=== PATIENT | female | born 1955 | race Caucasian/White ===

== ENCOUNTER 2022-11-14 15:02 | Outpatient (CLI) | payer MEDICARE, SELFPAY ==
--- NOTE | ~2022-11-14 | DEXA_ITS ---
Bone Density Report Name: MELISSA YAN Age: 67 Sex: Female Ethnicity: White Date of : 1955 Indication: postmenopausal; screening for osteoporosis; height loss; hysterectomy; Referring Provider: ANNAMARIA SAMANIEGO NP Study: Bone densitometry was performed. Exam Date: November 14, 2022 Accession number: [id number] Bone Density: Region BMD T-score Z-score Classification AP Spine(L1-L4) 0.984 -0.6 1.4 Normal Femoral Neck (Left) 0.881 0.3 2.0 Normal Total Hip (Left) 0.960 0.1 1.6 Normal Femoral Neck (Right) 0.891 0.4 2.1 Normal Total Hip (Right) 0.964 0.2 1.6 Normal Total Hip Mean 0.962 0.2 1.6 Normal World Health Organization criteria for BMD impression classify patients as: Normal (T-score at or above -1.0), Osteopenia (T-score between -1.0 and -2.5), or Osteoporosis (T-score at or below -2.5). 10-year Fracture Risk: FRAX not reported because: All T-scores for Spine Total, Hip Total, Femoral Neck at or above -1.0 Clinical Information Provided by Patient: Has the following medical conditions: Hysterectomy Patient maximum height was 64 Menopause Age: 49 Drinks caffeinated beverages Onset of menses at age 12 Number of children 3 Impression: The patient has normal bone mass. Discussion: BONE DENSITY IS ABOVE THE MINIMUM DESIRABLE LEVEL AT ALL SKELETAL SITES TESTED. This patient?s bone mineral density is above the minimum desirable level (T-score -1.0 or better) at all sites measured. The patient should follow a healthful lifestyle (good nutrition with adequate calcium and vitamin D, and appropriate weight-bearing exercise). Follow-Up: Consider repeating this study in 5 years or sooner if there is some new clinical indication. Reported by: GREY on 11/14/2022 3:15:00 PM. Reviewed, dictated and finalized at location [facility]
== END 2022-11-14 15:03 | disposition home or self-care (01) ==
LOC: ANHIMG 15:05
PROVIDERS: Visit Provider Nurse Practitioner Family
DX: Z13.820 Encounter for screening for osteoporosis (principal); Z78.0 Asymptomatic menopausal state
CPT/HCPCS: 77080

== ENCOUNTER → 2023-03-05 09:28 | Outpatient (CLI) | payer MEDICARE, SELFPAY ==
--- NOTE | ~2023-03-05 | MR_ITS ---
MRI of the left knee Clinical history: Pain Technique: Coronal proton density and proton density-weighted images, sagittal proton-density and T2 fat-sat images, and axial proton-density fat-saturated images were acquired. Findings: ACL is hyperintense, and somewhat poorly delineated, but with fibers appearing to maintain normal orientation. Appearance suggests severe mucoid degenerative change of the ACL rather than rupt ure. Posterior cruciate ligament is intact. Medial collateral ligament and the lateral collateral lig ament complex are intact. Popliteus tendon is intact. There is complex tearing of the posterior horn and body of the medial meniscus, including probable la rge radial tear near the posterior root. No lateral meniscal tear identified. There is diffuse high-grade chondromalacia of the medial compartment. There is patchy mild chondromal acia of the lateral compartment. There is patchy moderate chondromalacia the femoral trochlea with fo richi high-grade chondromalacia along the medial patellar facet. Tricompartmental osteophytes are prese nt, largest at the medial joint line. Extensor mechanism is intact. There is minimal joint effusion and minimal Wallace's cyst. Impression: Complex tearing of the posterior horn and body of medial meniscus, as detailed above. 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 Mild to modera te degenerative change of the lateral and patellofemoral compartments, as detailed above. Reviewed, dictated and finalized at [facility]. Impression: Complex tearing of the posterior horn and body of medial meniscus, as detailed above. 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 Mild to moderate degenerative change of the lateral and patellofemoral compartments, as detailed above.
== END ==
PROVIDERS: PCP Family Medicine; Visit Provider Family Medicine
DX: S83.412D Sprain of medial collateral ligament of left knee, subsequent encounter (principal); M23.222 Derangement of posterior horn of medial meniscus due to old tear or injury, left knee; M94.262 Chondromalacia, left knee
CPT/HCPCS: 73721

== ENCOUNTER 2025-05-03 09:34 | Outpatient (CLI) | payer MEDICARE, SELFPAY ==
--- NOTE | ~2025-05-03 | DEXA_ITS ---
Bone Density Report Name: MELISSA YAN Age: 69 Sex: Female Ethnicity: White Date of : 1955 Indication: postmenopausal; screening for osteoporosis; height loss; hysterectomy; Referring Provider: DANETTE, ANNAMARIA Ambrocio Study: Bone densitometry was performed. Exam Date: May 03, 2025 Accession number: [id number] Bone Density: Region BMD T-score Z-score Classification AP Spine(L1-L4) 1.043 0.0 2.1 Normal Femoral Neck (Left) 0.864 0.1 2.0 Normal Total Hip (Left) 0.999 0.5 2.0 Normal Femoral Neck (Right) 0.861 0.1 2.0 Normal Total Hip (Right) 0.971 0.2 1.8 Normal Total Hip Mean 0.985 0.4 1.9 Normal World Health Organization criteria for BMD impression classify patients as: Normal (T-score at or above -1.0), Osteopenia (T-score between -1.0 and -2.5), or Osteoporosis (T-score at or below -2.5). 10-year Fracture Risk: FRAX not reported because: All T-scores for Spine Total, Hip Total, Femoral Neck at or above -1.0 Previous Exams: Region Exam Age BMD T-score BMD Change BMD Change Date g/cm2 vs Baseline vs Previous AP Spine (L1-L4) 05/03/2025 69 1.043 0.0 0.059 (6.0%)* 0.059 (6.0%)* 11/14/2022 67 0.984 -0.6 Total Hip(Left) 05/03/2025 69 0.999 0.5 0.039 (4.1%)* 0.039 (4.1%)* 11/14/2022 67 0.960 0.1 Total Hip(Right) 05/03/2025 69 0.971 0.2 0.006 (0.6%) 0.006 (0.6%) 11/14/2022 67 0.964 0.2 *Denotes significance at 95% confidence level, LSC for AP Spine = 0.022 g/cm2, LSC for Total Hip = 0.027 g/cm2 Clinical Information Provided by Patient: Has used the following medications: Vitamin D Has the following medical conditions: Hysterectomy Patient maximum height was 64 Menopause Age: 49 No regular weight bearing exercise Drinks caffeinated beverages Onset of menses at age 13 Number of children 3 Impression: The patient has normal bone mass. No significant bone loss was observed. Discussion: LOW RISK OF FRACTURE; BONE DENSITY IS WELL ABOVE THE MINIMUM DESIRABLE LEVEL AND ABOVE AVERAGE FOR AGE AND SEX AT ALL SKELETAL SITES TESTED. This person's bone density is above expected limits for age and sex. This is rarely clinically significant, but should be pursued if there are significant musculoskeletal complaints. The patient should follow a healthful lifestyle (good nutrition with adequate calcium and vitamin D, and appropriate weight-bearing exercise). Follow-Up: Consider repeating this study in 5 years or sooner if there is some new clinical indication. Reported by: SRAVANTHI on 05/03/2025 10:18:00 AM. Reviewed, dictated and finalized at location A.
--- OUTSIDE RECORDS SUMMARY | 2025-05-03 10:26 | XMS_ITS | Encounter Summary ---
Author Organization [facility] Healthcare Address [address] [place] [address] Care Team Providers Care Glass Beveller Name Role Phone Cinthia Lindsay NP Primary Care Provider [phone] Kindra Gilliland MD Unavailable [phone] Adis Byrne MD Unavailable [phone] Chele Sawyer MD Unavailable [phone] Encounter Details Date Type Department Care Team (Latest Contact Info) Description 04/12/2025 Results Follow-Up [facility] [place] [address] [place] [address] Cinthia Lindsay NP [address] [place] [address] [address] [place] [address] CBC with auto differential, Comprehensive metabolic panel, Lipid panel, Additional followed-up results: 6 Social History Tobacco Use Types Packs/Day Years Used Date Smoking Tobacco: Never Passive Smoke Exposure: Never Smokeless Tobacco: Never Alcohol Use Standard Drinks/Week Comments Yes 2 (1 standard drink = 0.6 oz pur e alcohol) AUDIT-C Answer Date Recorded Q1: How often do you have a drink containing alcohol? Never 02/27/2023 Q2: How many drinks containi ng alcohol do you have on a typical day when you are drinking? Patient does not drink Q3: How often do you have si x or more drinks on one occasion? Never 02/27/2023 PHQ-2 Answer Date Recorded PHQ-2 Total Score (If total score is 3 or more points, staff should administer the PHQ-9) 0 04/12/2025 Personal Safety Answer Date Recorded Have you ever been in or are you currently in a harmful physical or emotional relationship or is someone making you feel afraid or unsafe? Denies 02/10/2024 Comments No Sex and Gender Information Value Date Recorded Sex Assigned at Not on file Legal Sex Female 3:17 AM ART INSTRUCTOR Gender Identity Not on file Sexual Orientation Straight 05/12/2020 3: 42 PM ART INSTRUCTOR documented as of this encounter Functional Status * In the past year, patient experienced: Question Answer Date of Assessment Author One or more falls in the las t year 0 04/12/2025 11:00 AM ART INSTRUCTOR Capo Cortés MA * BP Location Answer Date of Assessment Author Left arm 04/12/2025 11:02 AM ART INSTRUCTOR Gilda Cortés MA * BP Location Answer Date of Assessment Author Left arm 04/12/2025 11:02 AM ART INSTRUCTOR Gilda Cortés MA documented as of this encounter Plan of Treatment Not on file documented as of this encounter Visit Diagnoses Not on filedocumented in this encounter Care Teams Glass Beveller Relationship Specialty Start Date End Date Cinthia Lindsay NP [address] [facility] [address] [place] [address] PCP - General Family Medicine 09/24/22 Kindra Gilliland MD [address] [facility] [address] [place] [address] Consulting Physician Obstetrics and Gynecology 09/24/22 Adis Byrne MD [address] [facility] [address] [place] [address] Referring Physician Dermatology 09/24/22 [place] [id number] [facility] [address] [place] [address] Referring Physician Orthopedic Surgery 10/23/23 documented as of this encounter
--- OUTSIDE RECORDS SUMMARY | 2025-05-03 10:26 | XMS_ITS | Clinical Summary ---
Author Organization [facility] Address [address] [place] [address] Care Team Providers Care Charge Lpn Name Role Phone Cinthia Lindsay NP Primary Care Provider [phone] Kindra Gilliland MD Unavailable [phone] Adis Byrne MD Unavailable [phone] Chele Sawyer MD Unavailable Allergies No known active allergies Medications celecoxib (CeleBREX) 200 mg capsule Take 1 capsule (200 mg total) by mouth 2 (two) times a day 4 Active lifitegrast (Xiidra) 5 % dropperette Active betamethasone dipropionate (DIPROSONE) 0.05 % ointment Apply topically 2 (two) times a day as needed for irritation or rash 45 g 5 Active Additional Information Patient not taking.Reported on 04/12/2025 tetrahydrozoline HCl/zinc sulf (EYE DROPS RELIEF OPHT) Active rosuvastatin (CRESTOR) 10 mg tablet Take 1 tablet (10 mg total) by mouth daily 90 tablet 1 5 Active Active Problems Problem Noted Date Diagnosed Date Presence of left artificial knee joint 5 Unspecified malignant neoplasm of skin, unspecif ied 06/20/2024 Preoperative examination 06/10/2024 Moderate mixed hyperlipidemia not requiring stat in therapy 10/23/2023 Assessment & Plan (04/12/2025 1:12 PM ANIMATION PRODUCER): ASCVD risk score <10%. Updated labs ordered, will re-calculate on those numbers. Assessment & Plan (10/23/2023 11:50 AM CDT): ASCVD risk score <10%. Updated labs ordered, will re-calculate on those numbers. Personal history of colonic polyps 06/25/2023 Medicare annual wellness visit, subsequent 06/25 Assessment & Plan (04/12/2025 12:23 PM ANIMATION PRODUCER): A yearly Medicare Annual Wellness Visit has been performed today. Anuradha Neri is not up to date on screening tests. She is in need of DEXA- these have been ordered. She is not up to date on needed preventative vaccinations; She is in need of Influenza and Covid-19 (booster). These have been ordered/arranged unless otherwise indicated. Cervical high risk human pap illomavirus (HPV) DNA test positive 06/21/2023 Menopausal symptoms 06/21/2023 Primary osteoarthritis of left knee 06/21/2023 Sprain of medial collateral ligament of left kne e 02/27/2023 Acute pain of left knee 02/11/2023 Assessment & Plan (02/11/2023 4:30 PM CDT): Patient presented for L knee pain after a Pickleball injury. She has stability and no deformity to her knee. Pain has been managed with Aleve OTC. - Continue taking Aleve no more than twice a day, can use 1 tablet of OTC tylenol every 6-8 hrs as needed. - Voltaran OTC - We discussed leg exercises to help strength and support the muscles that support the knee - please return if pain persists or worsen. If clicking, locking, or popping of the knee occurs then please let us know. Screening for colon cancer 10/10/2018 Overview (10/10/2018): Added automatically from request for surgery [id number] Encounters Date Type Department Care Team Description 04/14/2025 Orders Only [facility] Primary Care at [address] [address] Cinthia Lindsay NP Mixed hyperlipidemia (Primary Dx) 04/12/2025 12:15 PM ANIMATION PRODUCER - 04/12/2025 11:59 PM ANIMATION PRODUCER [place] [address] Left foot pain Discharge Disposition: Discharge to home or self care 04/12/2025 12:15 PM ANIMATION PRODUCER Lab [facility] [place] [facility] [address] [place] [address] Medicare annual wellness visit, subsequent; Moderate mixed hyperlipidemia not requiring statin therapy; Lipid screening; Vitamin D deficiency; B12 deficiency; Thyroid disorder screen 04/12/2025 11:00 AM ANIMATION PRODUCER Office Visit [facility] Primary Care at [address] [address] Cinthia Lindsay NP Medicare annual wellness visit, subsequent (Primary Dx); Moderate mixed hyperlipidemia not requiring statin therapy; Left foot pain; Numbness; Encounter for osteoporosis screening in asymptomatic postmenopausal patient; Thyroid disorder screen; Lipid screening; Vitamin D deficiency; B12 deficiency 04/12/2025 Results Follow-Up [facility] Primary Care at [address] [address] Cinthia Lindsay NP CBC with auto differential, Comprehensive metabolic panel, Lipid panel, Additional followed-up results: 6 from Last 3 Months Immunizations Immunization Administration Dates Next Due Influenza, Quad, Adjuvantate d, Intramuscular 03/23/2022,03/26/2021 Influenza, Quadrivalent, Ashley l Culture-based MDCK, Antibiotic Free, Intramuscular 03/16/2019 Influenza, Quadrivalent, Spl it, Preservative Free, Intramuscular 03/05/2018,03/04/2018 Influenza, Trivalent, High D ose, Split, Preservative Free, Intramuscular 02/24/2024,03/16/2019 Influenza, Trivalent, IM (MDV) 03/25/2021,2019,03/08/2014 Influenza, Unspecified 06/03/2023,2022,06/03/2022(Defer red: Patient Refused),06/03/2021(Deferred: Patient Refused) Moderna SARS-CoV-2 Monovalen t Vaccination (12+ YRS) 03/26/2021,08/19/2020,07/19/2020 Pneumococcal Conjugate Pcv20 02/24/2024 Pneumococcal Polysaccharide PPV23 05/24/2021 Sars-cov-2 Covid-19 Mrna, Jesus rosa, Candie/tevin Card.1 02/24/2024 Tdap 05/04/2024,08/25/2013 ZOSTER Recombinant 11/22/2020,05/15/2020 Surgical History Surgery Date Site/Laterality Comments COLONOSCOPY 11/17/2018 HYSTERECTOMY Partial 2019 JOINT REPLACEMENT 2024 Left knee Medical History Medical History Date Comments Arthritis 2019 Family History Medical History Relation Name Comments Cancer Father Brenden Henson Cancer Maternal Grandmother Radha Butler Hyperlipidemia Mother Yuni Henson Stroke Mother Yuni Henson Cancer Sister Anastasiia Loyola Relation Name Status Comments Father Brenden Henson Maternal Grandmother Radha Butler Mother Yuni Henson Sister Anastasiia Loyola Social History Tobacco Use Types Packs/Day Years Used Date Smoking Tobacco: Never Passive Smoke Exposure: Never Smokeless Tobacco: Never Tobacco Cessation:Counseling Given: Not Answered Alcohol Use Standard Drinks/Week Comments Yes 2 [...] on file Legal Sex Female 3:17 AM ANIMATION PRODUCER Gender Identity Not on file Sexual Orientation Straight 05/12/2020 3: 42 PM ANIMATION PRODUCER Obstetrics History Para Term AB IAB SAB Ectopic Multiple Livin g Live Births 3 3 Date Outcome GA Total Labor Labor/2nd/3rd Weight Sex Type Anes PTL Merlyn A1 A5 Name Clin Last Filed Vital Signs Vital Sign Reading Time Taken Comments Blood Pressure 110/78 04/12/2025 11:02 AM ANIMATION PRODUCER Pulse 73 04/12/2025 11:02 AM ANIMATION PRODUCER Temperature 36.4 C (97.5 F) 04/12/2025 11:02 AM ANIMATION PRODUCER Respiratory Rate 16 01/04/2025 8:25 AM CDT Oxygen Saturation 99% 04/12/2025 11:02 AM ANIMATION PRODUCER Inhaled Oxygen Concentration - - Weight 64.4 kg (142 lb) 04/12/2025 11:02 AM ANIMATION PRODUCER Height 158.8 cm (5' 2.52) 04/12/2025 11:[address] Body Mass Index 25.54 04/12/2025 11:02 AM ANIMATION PRODUCER Plan of Treatment Health Maintenance Due Date Last Done Comments Hepatitis C Screening 1955 Hepatitis B Screening 1972 Osteoporosis Screening-Bone Density Scan 11/14/2024 11/14/2022, 11/14/2022, 06/17/2020, Additional history exists Covid-19 Vaccine (2024-2 6 season) 2025 02/24/2024, 02/24/2024, 12/17/2021, Additional history exists Influenza Vaccine (#1) 2025 , 06/03/2023, 06/03/2022, Additional history exists Breast Cancer Screening-Mammogram 01/04/2026 01/04/2025, 11/20/2023, 09/19/2022, Additional history exists Depression Screening 04/12/2026 04/12/2025, 01/04/2025, 06/10/2024, Additional history exists Fall Risk Assessment 04/12/2026 04/12/2025, 06/10/2024, 02/27/2023, Additional history exists Well Visit 65+ 04/12/2026 04/12/2025, 10/02, 09/24/2022 Colon Cancer Screening-Colonoscopy 02/09/2029 02/10/2024, 11/17/2018 DTaP/Tdap/Td Vaccine (3 - Td or Tdap) 05/04/2034 05/04/2024, 08/25/2013 Zoster Vaccine Completed 11/22/2020, 05/15/2020 Colon Cancer Screening-CT Colonography Discontinued 02/10/2024, 11/17/2018 Colon Cancer Screening-DNA Stool Discontinued 02/10/20 24, 11/17/2018 Colon Cancer Screening-FIT Discontinued 02/10/2024, Colon Cancer Screening-Sigmoidoscopy Discontinued 02/10/2024, 11/17/2018 Pneumococcal vaccine 65+ Completed 02/24/2024, 05/04 Procedures Procedure Name Priority Date/Time Associated Diagnosis Comments XR FOOT LEFT 3 OR MORE VIEWS Schedule Routine, Read Routine (OP Routine) 04/12/2025 12:32 PM ANIMATION PRODUCER Left foot pain EGFR Routine 04/12/2025 12:21 PM ANIMATION PRODUCER Medicare annual wellness visit, subsequent Moderate mixed hyperlipidemia not requiring statin therapy DIFFERENTIAL AUTO Routine 04/12/2025 12:21 PM ANIMATION PRODUCER Medicare annual wellness visit, subsequent Moderate mixed hyperlipidemia not requiring statin therapy THYROID FUNCTION CASCADE Routine 04/12/2025 12:21 PM ANIMATION PRODUCER Thyroid disorder screen VITAMIN B12 Routine 04/12/2025 12:21 PM ANIMATION PRODUCER B12 deficiency VITAMIN D 25 HYDROXY Routine 04/12/2025 12:21 PM ANIMATION PRODUCER Vitamin D deficiency LIPID PANEL Routine 04/12/2025 12:21 PM ANIMATION PRODUCER Lipid screening Moderate mixed hyperlipidemia not requiring statin therapy COMPREHENSIVE METABOLIC PANEL Routine 04/12/2025 12:21 PM ANIMATION PRODUCER Medicare annual wellness visit, subsequent Moderate mixed hyperlipidemia not requiring statin therapy CBC WITH AUTO DIFFERENTIAL Routine 04/12/2025 12:21 PM ANIMATION PRODUCER Medicare annual wellness visit, subsequent Moderate mixed hyperlipidemia not requiring statin therapy SCREENING MAMMOGRAM BILATERAL W WICHO Schedule Routine, Read Routine (OP Routine) 01/04/2025 12:41 PM CDT Screening mammogram, encounter for COLONOSCOPY 02/10/2024 8:25 AM CDT DEXA SCAN Routine 11/14/2022 from Last 3 Months or Most Recently Relevant to Health Maintenance Results * XR Foot Left 3+ Vw (04/12/2025 12:32 PM ANIMATION PRODUCER) Anatomical Region Laterality Modality Lower Extremities, Foot Left Computed Radiography 04/13/2025 8:03 AM ANIMATION PRODUCER Impressions 04/13/2025 8:03 AM ANIMATION PRODUCER 1. Mild left midfoot and 1st metatarsophalangeal joint osteoarthritis. 2. Moderate heel spur. Electronically signed by: Peter Michelle M.D. Narrative 04/13/2025 8:03 AM ANIMATION PRODUCER EXAMINATION: XR FOOT LEFT 3 OR MORE VIEWS HISTORY: Left foot pain, mild swelling, chronic arthritis. FINDINGS: 3 views submitted without comparison. No acute fracture. Mild midfoot osteoarthritis. Moderate-sized heel spur. Mild 1st metatarsophalangeal joint osteoarthritis. Procedure Note Peter Michelle MD - 04/13/2025 EXAMINATION: XR FOOT LEFT 3 OR MORE VIEWS HISTORY: Left foot pain, mild swelling, chronic arthritis. FINDINGS: 3 views submitted without comparison. No acute fracture. Mild midfoot osteoarthritis. Moderate-sized heel spur. Mild 1st metatarsophalangeal joint osteoarthritis. IMPRESSION: 1. Mild left midfoot and 1st metatarsophalangeal joint osteoarthritis. 2. Moderate heel spur. Electronically signed by: Peter Michelle M.D. Cinthia Lindsay [employer] IMG XR PROCEDURES Final Result * eGFR (04/12/2025 12:21 PM ANIMATION PRODUCER) eGFR >90 >=60 mL/min/1. 73 m2 Comment: Interpretive Data Reference Interval Normal >/= 90 mL/min/1.73m2 Mildly decreased* 60 - 89 mL/min/1.73m2 Mildly to moderately decreased 45 - 59 mL/min/1.73m2 Moderately to severely decreased 30 - 44 mL/min/1.73m2 Severely decreased 15 - 29 mL/min/1.73m2 Kidney Failure < 15 mL/min/1.73m2 *Relative to young adult level Estimated glomerular filtration rate is determined by the 2020 CKD-EPI equation recommended by the National Kidney Foundation (A Unifying Approach to GFR Estimation: Recommendations of the NKF-ASK Task Force on Reassessing the Inclusion of Race in Diagnosing Kidney Disease, JASN 2020). The CKD-EPI equation should not be used for patients with unstable renal function and has not been validated in children and those over 70. Current interpretive data was last reviewed 2021. Blood 04/12/2025 12:2 1 PM ANIMATION PRODUCER 04/12/2025 2:15 PM ANIMATION PRODUCER us Cinthia Lindsay NP LAB BLOOD ORDERABLES Final Resul t [facility] [address] [facility] Department [place] [address] * Differential, auto (04/12/2025 12:21 PM ANIMATION PRODUCER) Neutrophil abs 3.69 1.50 - 6.50 K/cumm Imm gran abs 0.02 0.00 - 0.10 K/cumm [facility] Lymphocyte abs 1.05 0.80 - 3.30 K/cumm [facility] Monocyte abs 0.31 0.20 - 0.80 K/cumm [facility] Eosinophil abs 0.15 0.00 - 0.50 K/cumm [facility] Basophil abs 0.02 0.00 - 0.10 K/cumm [facility] Neutrophil pct 70.4 % [facility] Comment: Interpretive Data Percent cell count reference ranges are not reported, since discordance with absolute values may lead to misinterpretation of CBC data. Current Interpretive Data was last revised on 2017. Imm gran pct 0.4 % [facility] Comment: Interpretive Data Percent cell count reference ranges are not reported, since discordance with absolute values may lead to misinterpretation of CBC data. Current Interpretive Data was last revised on 2017. Lymphocyte pct 20.0 % [facility] Comment: Interpretive Data Percent cell count reference ranges are not reported, since discordance with absolute values may lead to misinterpretation of CBC data. Current Interpretive Data was last revised on 2017. Monocyte pct 5.9 % [facility] Comment: Interpretive Data Percent cell count reference ranges are not reported, since discordance with absolute values may lead to misinterpretation of CBC data. Current Interpretive Data was last revised on 2017. Eosinophil pct 2.9 % [facility] Comment: Interpretive Data Percent cell count reference ranges are not reported, since discordance with absolute values may lead to misinterpretation of CBC data. Current Interpretive Data was last revised on 2017. Basophil pct 0.4 % [facility] Comment: Interpretive Data Percent cell count reference ranges are not reported, since discordance with absolute values may lead to misinterpretation of CBC data. Current Interpretive Data was last revised on 2017. Blood 04/12/2025 12:2 1 PM ANIMATION PRODUCER 04/12/2025 2:15 PM ANIMATION PRODUCER us Cinthia Lindsay [employer] LAB BLOOD ORDERABLES Final Resul t Performing Organization Address [facility] Co de Phone Number [address] [employer] [place] [address] * Thyroid Function [place] (04/12/2025 12:21 PM ANIMATION PRODUCER) Pathologist [facility] TSH 1.43 0.30 - 4.20 mcIUnit/mL Blood 04/12/2025 12:2 1 PM ANIMATION PRODUCER 04/12/2025 2:15 PM ANIMATION PRODUCER us Cinthai Lindsay [employer] LAB BLOOD ORDERABLES Final Resul t Performing Organization Address City/[facility] Co de Phone Number [address] [employer] [place] [address] * CBC with auto differential (04/12/2025 12:21 PM ANIMATION PRODUCER) Pathologist [facility] WBC 5.24 3.80 - 9.90 K/cumm Hgb 13.6 11.9 - 15.5 g/dL [facility] Hct 41.4 35.6 - 45.5 % [facility] Plt 203 150 - 400 K/cumm [facility] MPV 10.4 9.1 - 12.3 fL [facility] RBC 4.31 3.90 - 5.20 M/cumm [facility] MCV 96.1 81.3 - 96.4 fL [facility] MCH 31.6 27.1 - 33.3 pg [facility] MCHC 32.9 32.3 - 35.7 g/dL [facility] RDW CV 12.5 11.1 - 14.9 % [facility] RDW SD 45.0 35.7 - 48.1 fL [facility] NRBC abs 0.00 0.00 - 0.01 K/cumm [facility] Blood 04/12/2025 12:2 1 PM ANIMATION PRODUCER 04/12/2025 2:15 PM ANIMATION PRODUCER us Cinthia Lindsay [employer] LAB BLOOD ORDERABLES Final Resul t Performing Organization Address City/[facility] Co de Phone Number [address] [employer] [place] [address] * Vitamin D 25 hydroxy (04/12/2025 12:21 PM ANIMATION PRODUCER) Vitamin D 25-OH 64.0 30.0 - 80.0 ng/mL Blood 04/12/2025 12:2 1 PM ANIMATION PRODUCER 04/12/2025 2:15 PM ANIMATION PRODUCER us Cinthia Lindsay [employer] LAB BLOOD ORDERABLES Final Resul t Performing Organization Address City/[facility] Co de Phone Number [address] [place] [address] * Vitamin B12 (04/12/2025 12:21 PM ANIMATION PRODUCER) Vitamin B12 579 230 - 1,250 pg/mL Blood 04/12/2025 12:2 1 PM ANIMATION PRODUCER 04/12/2025 2:15 PM ANIMATION PRODUCER us Cinthia Lindsay [employer] LAB BLOOD ORDERABLES Final Resul t [address] [place] [address] * (ABNORMAL) Lipid panel (04/12/2025 12:21 PM ANIMATION PRODUCER) Cholesterol 252(H) 30 - 199 mg/dL Comment: Interpretive Data Ages < or = 19 years Acceptable: <170 mg/dL Borderline high: 170-199 mg/dL High: >or= 200 mg/dL Ages > or = 20 years Desirable: <200 mg/dL Borderline high: 200-239 mg/dL High: >or= 240 mg/dL Literature References: 1. Expert Panel on Integrated Guidelines for Cardiovascular Health and Risk Reduction in Children and Adolescents. Pediatrics 2011;128:S213 2. NCEP Expert Panel. Circulation 2004;110:227 Current Interpretive Data was last revised on 2018. Triglycerides 148 <=149 mg/dL [facility] Comment: Interpretive Data Ages < or = 9 years Acceptable: <75 mg/dL Borderline high: 75-99 mg/dL High: >or= 100 mg/dL Ages 10 to 20 years Acceptable: <90 mg/dL Borderline high: 90-129 mg/dL High: >or= 130 mg/dL Ages > or = 20 years Desirable: <150 mg/dL Borderline high: 150-199 mg/dL High: 200-499 mg/dL Very high: >or= 499 mg/dL Literature References: 1. Expert Panel on Integrated Guidelines for Cardiovascular Health and Risk Reduction in Children and Adolescents. Pediatrics 2011;128:S213 2. NCEP Expert Panel. Circulation 2004;110:227 Current Interpretive Data was last revised on 2018. HDL 60 >=40 mg/dL [facility] Comment: Interpretive Data Ages < or = 19 years Acceptable: >45 mg/dL Borderline low: 40-45 mg/dL Low: <40 mg/dL Ages > or = 20 years Desirable: >or= 60 mg/dL Low: <40 mg/dL Literature References: 1. Expert Panel on Integrated Guidelines for Cardiovascular Health and Risk Reduction in Children and Adolescents. Pediatrics 2011;128:S213 2. NCEP Expert Panel. Circulation 2004;110:227 Current Interpretive Data was last revised on 2018. LDL, calculated 165(H) <=129 mg/dL [facility] Comment: Interpretive Data Ages < or = 19 years Acceptable: <110 mg/dL Borderline high: 110-129 mg/dL High: >or= 130 mg/dL Ages > or = 20 years Optimal: <100 mg/dL Near optimal: 100-129 mg/dL Borderline high: 130-159 mg/dL High: >160 mg/dL Calculated using the Harsha LDL-C estimating equation. This equation was implemented on 2024. Prior to this date LDL-C was estimated using the Friedewald equation. Literature References: 1. Expert Panel on Integrated Guidelines for Cardiovascular Health and Risk Reduction in Children and Adolescents. Pediatrics 2011;128:S213 2. NCEP Expert Panel. Circulation 2004;110:227 3. Harsha Mcnamara et al. GLEN Cardiol. 2020 October 01;5(5):540-548. doi: 10.1001/jamacardio.2020.0013 Current Interpretive Data was last revised on 2024. Non-HDL Cholesterol 192 mg/dL [facility] Comment: Interpretive Data Ages < or = 19 years Acceptable: <120 mg/dL Borderline high: 120-144 mg/dL High: >145 mg/dL Ages > or = 20 years When triglycerides are >200 mg/dL, Non-HDL cholesterol is a secondary target of therapy with treatment goals that are 30 mg/dL greater than the LDL cholesterol target. Literature References: 1. Expert Panel on Integrated Guidelines for Cardiovascular Health and Risk Reduction in Children and Adolescents. Pediatrics 2011;128:S213 2. NCEP Expert Panel. Circulation 2004;110:227 Current Interpretive Data was last revised on 2018. Chol/HDL ratio 4 [facility] Blood 04/12/2025 12:2 1 PM ANIMATION PRODUCER 04/12/2025 2:15 PM ANIMATION PRODUCER us Cinthia Lindsay [employer] LAB BLOOD ORDERABLES Final Resul t [facility] [address] [facility] Department [place] [address] * Comprehensive metabolic panel (04/12/2025 12:21 PM ANIMATION PRODUCER) Sodium 142 135 - 145 mmol/L Potassium, pl 4.3 3.3 - 4.9 mmol/L [facility] Chloride 105 97 - 110 mmol/L [facility] CO2 27 22 - 32 mmol/L [facility] Anion gap 10 2 - 15 mmol/L [facility] BUN 20 6 - 25 mg/dL [facility] Creatinine 0.65 0.60 - 1.10 mg/dL [facility] Glucose 103 70 - 199 mg/dL [facility] Comment: Interpretive Data Fasting glucose >/= 126 mg/dl is diagnostic for diabetes. Fasting is defined as no caloric intake for at least 8 hours. Fasting glucose between 100 mg/dl to 125 mg/dl is diagnostic of prediabetes. In a patient with classic symptoms of hyperglycemia or hyperglycemic crisis, a random glucose >/= 200 mg/dl is diagnostic for diabetes. In the absence of unequivocal hyperglycemia, results should be confirmed by repeat testing. The classification and Diagnosis of Diabetes Diabetes Care 2021; 46: S19-S40. Current interpretive data was last revised 2022. Calcium 9.6 8.5 - 10.3 mg/dL [facility] Bilirubin, total 0.5 0.1 - 1.2 mg/dL [facility] Protein, pl 6.9 6.5 - 8.5 g/dL [facility] Albumin 4.4 3.5 - 5.0 g/dL [facility] Alk phos 77 40 - 130 Units/L [facility] ALT 9 7 - 45 Units/L [facility] AST 23 10 - 45 Units/L [facility] Blood 04/12/2025 12:2 1 PM ANIMATION PRODUCER 04/12/2025 2:15 PM ANIMATION PRODUCER Cinthia Lindsay NP LAB BLOOD ORDERABLES Final Resul t [facility] [address] [facility] Department [place] [address] * Screening Mammogram Bilateral W Wicho (01/04/2025 12:41 PM CDT) Anatomical Region Laterality Modality Breast Bilateral Mammography Impressions 01/05/2025 3:53 PM CDT Bilateral No evidence of malignancy in either breast. OVERALL BI-RADS FINAL ASSESSMENT: 1 - Negative RECOMMENDATION: Recommend bilateral annual screening mammography. Narrative 01/05/2025 3:53 PM CDT EXAMINATION: Screening Mammogram Bilateral W Wicho: 01/04/2025 COMPARISON: Relevant prior studies available at the time of interpretation were reviewed, including the most recent mammogram on: 11/28/2023. TECHNIQUE: Mammography was performed with 2D and digital breast tomosynthesis (DBT) images. CAD was utilized. BREAST PARENCHYMAL COMPOSITION: There are scattered areas of fibroglandular density. FINDINGS: Bilateral There is no suspicious mass, calcification, or architectural distortion in either breast. us Self Screening Mammogram IMG MAMMO PROCEDURES Fi nal Result * Colonoscopy (02/10/2024 8:25 AM CDT) Anatomical Region Laterality Modality Other Narrative Procedure Note Zahida Flowers MD - 02/10/2024 8:25 AM CDT [facility] Patient Name: Anuradha Neri Procedure Date: 02/10/2024 8:25 AM Date of : 1955 Admit Type: Outpatient Age: 68 Gender: Female Attending MD: Zahida Flowers M.D. Room: [facility] 1 Note Status: Finalized Patient Profile: This is a 68 year old female. History of adenoma polyps. No family history of colon cancer. Procedure: Colonoscopy Indications: Surveillance: Personal history of colonic polyps (unknown histology) on last colonoscopy 5 yearsago, Last colonoscopy: November 2018 Referring MD: Lise Guevara Providers: Zahida Flowers M.D. Impression: - One 10 mm polyp in the sigmoid colon, removedwith a cold snare. Resected and retrieved. - Internal hemorrhoids. Recommendation: - Await pathology results. - Repeat colonoscopy in 5 years for surveillance. Medicines: Monitored Anesthesia Care Complications: No immediate complications. Estimated Blood Loss: Estimated blood loss: none. Procedure: Pre-Anesthesia Assessment: - Prior to the procedure, a History and Physicalwas performed, and patient medications and allergieswere reviewed. The patient's tolerance of previous anesthesia was also reviewed. The risks andbenefits of the procedure and the sedation options and risks were discussed with the patient. All questions were answered, and informed consent was obtained. Prior Anticoagulants: The patient has taken noanticoagulant or antiplatelet agents. ASA Grade Assessment: Per anesthesia note and evaluation. After reviewing the risks and benefits, the patient was deemed in satisfactory condition to undergo the procedure. The benefits, risks and alternatives of theprocedure and sedation were discussed and informed consentwas obtained. All questions were answered. Please referto the signed informed consent document in the medical record. The bowel preparation used was Miralax and bisacodyl tablets via split dose instruction. The scope was passed under direct vision. The Pediatric Colonoscope PCF-H190L [id number] was introducedthrough the anus and advanced to the the cecum, identifiedby appendiceal orifice and ileocecal valve. Thequality of the bowel preparation was good. Bowel prep was administered using a split dose. Findings: The perianal and digital rectal examinations were normal. The descending colon, transverse colon, ascending colon and cecum appeared normal. A 10 mm polyp was found in the sigmoid colon. The polyp wassemi-sessile to flat and benign in appearance. The polyp was removed with a cold snare. Resection and retrieval were complete. Internal hemorrhoids were found during retroflexion. The hemorrhoids were small. Electronically signed by Zahida Flowers M.D. Zahida Flowers M.D. 02/10/2024 9:53:51 AM Number of Addenda: 0 Note Initiated On: 02/10/2024 8:25 AM Procedure Code(s): --- Professional --- 34449, Colonoscopy, flexible; with removal of tumor(s), polyp(s), or other lesion(s) by snare technique Diagnosis Code(s): --- Professional --- Z86.010, Personal history of colonic polyps K64.8, Other hemorrhoids D12.5, Benign neoplasm of sigmoid colon CPT copyright 2020 [employer]. All rights reserved. The codes documented in this report are preliminary and upon mud mixer helper reviewmay be revised to meet current compliance requirements. Recognized by the [employer] for promoting quality in endoscopy Zahida Flowers MD ENDOSCOPY PROCEDURES Final Result * DEXA SCAN (11/14/2022) Historical Provider HEALTH MAINTENANCE Final Result from Last 3 Months or Most Recently Relevant to Health Maintenance Insurance [facility] [employer] ADVANTAGE [facility] [employer] Member Subscriber Plan / Payer (Ef fective 2022-Present) Name:Anuradha Neri Relation to Subscriber:Self Name:Anuradha Neri Payer ID:[id number] (NAIC) Type:[facility] MEDIC[employer] Address: [address] [id number] Advance Directives For more information, please contact: [phone] * Full Code (Latest Code Status on File) Date Activated Date Inactivated Comments 02/10/2024 7:52 AM 02/10/2024 2:40 PM * Full Code Date Activated Date Inactivated Comments 02/10/2024 7:52 AM 02/10/2024 7:52 AM * Full Code Date Activated Date Inactivated Comments 11/25/2018 2:34 PM 11/26/2018 6:44 PM Care Teams Charge Lpn Relationship Specialty Start Date End Date Cinthia Lindsay NP [address] [facility] [address] [place] [address] PCP - General Family Medicine 09/24/22 Kindra Gilliland MD [address] [facility] [address] [place] [id number] Consulting Physician Obstetrics and Gynecology 09/24/22 Adis Byrne MD [address] [facility] [address] [place] [address] Referring Physician Dermatology 09/24/22 [place] [address] [address] Referring Physician Orthopedic Surgery 10/23/23
--- OUTSIDE RECORDS SUMMARY | 2025-05-03 10:26 | XMS_ITS | Clinical Summary ---
[facility] [place] [address] [place] [address] Phone Care Team Providers Care Event Executive Name Role Phone Unavailable Primary Care Provider Unavailabl e Allergies No known active allergies Medications Multivitamin Capsule Take by mouth. Active PSYLLIUM SEED, ASPARTAME, ORAL Take 0.36 Grams by mouth. Active Active Problems Patient Care Coordination No te Formatting of this note migh t be different from the original. solar mechanical engineer: Dr. Gilliland Problem Noted Date Diagnosed Date Screening for colon cancer 10/10/2018 Overview (05/24/2021): Added automatically from request for surgery Immunizations Immunization Administration Dates Next Due (PNEUMOVAX 23)(50 YRS UP) PN EUMOCOCCAL POLYSACCHARIDE (PPV23) 0.5 ML, IM 05/24/2021 (SHINGRIX)(50 YRS UP) ZOSTER VACCINE RECOMBINANT, 0.5 ML, IM 11/22/2020,05/15/2020 (SPIKEVAX) (12 YRS UP PRIMAR Y SERIES) COVID-19 VACCINE - MRNA-1273(PF) 100 MCG/0.5 ML IM SUSP 03/25/2021,08/19/2020,07/19/2020 INFLUENZA VACCINE QUADRIVALE NT 6 MOS UP CELL DERIVED IM 03/16/2019 Influenza Seasonal Unspecifi ed Formulation IM 03/25/2021,03/04/2020 Influenza Vaccine High Dose 65+ Yrs IM 9 Influenza Vaccine Split 3+ Yrs IM 03/08/2014 Influenza Vaccine Tri Split 4+ Im 03/08/2014 Family History Medical History Relation Name Comments Lung Cancer Brother Cancer Father Brenden Henson lung cancer Lung Cancer Father Brenedn Henson Breast Cancer Maternal Grandmother Radha i n her 70s High Cholesterol Mother Mom Stroke Mother Mom Breast Cancer Sister Campbell Diagnosed in h er 40s, at 56 Cancer Sister Campbell breast cancer Relation Name Status Comments Brother Father Brenden Henson Maternal Grandmother Radha Mother Mom Sister Campbell Social History Tobacco Use Types Packs/Day Years Used Date Smoking Tobacco: Never Tobacco Cessation:Counseling Given: Not Answered Alcohol Use Standard Drinks/Week Comments Yes 2 (1 standard drink = 0.6 oz pur e alcohol) Financial Resource Strain Answer Date R ecorded How hard is it for you to pa y for the very basics like food, housing, medical care, and heating? Patient declined 05/24/2021 Food Insecurity Answer Date Recorded In the past 12 months, have you worried that your food would run out before you had money to buy more? Patient declined 2020 In the past 12 months, did y ou run out of food and didn't have money to buy more? Patient declined 05/24/2021 Transportation Needs Answer Date Record ed In the past 12 months, has l ack of transportation kept you from medical appointments or from getting medications? Patient declined 05/24/2021 Lack of Transportation (Non-Medical) Not on file 05/24/2021 Comments No Sex and Gender Information Value Date Recorded Sex Assigned at Not on file Legal Sex Female 12:50 PM CDT Gender Identity Not on file Sexual Orientation Not on file Last Filed Vital Signs Vital Sign Reading Time Taken Comments Blood Pressure 116/70 09/25/2022 11:05 AM CDT Pulse 81 01/19/2020 1:06 PM CDT Temperature 36.9 C (98.5 F) 11/09/2019 1:57 PM CDT Respiratory Rate - - Oxygen Saturation 98% 01/21/2019 9:16 AM CDT Inhaled Oxygen Concentration - - Weight 63.2 kg (139 lb 6.4 oz) 09/25/2022 11:05 AM CDT Height 157.5 cm (5' 2) 09/25/2022 11:05 AM CDT Body Mass Index 25.5 09/25/2022 11:05 AM CDT Plan of Treatment Health Maintenance Due Date Last Done Comments FIT-DNA Q 3 years 1999 Flex Sig/CT Colonography Q 5 years 1999 FIT/FOBT Q 1 year 06/17/2021 06/17/2020 PNEUMOCOCCAL VACCINE 50+ YEA RS (2 of 2 - PCV) 05/24/2022 05/24/2021 DTAP/TDAP/TD VACCINES (2 - T d or Tdap) 08/26/2023 08/25/2013 BREAST CANCER SCREENING 09/20/2023 09/20/19, 09/19/2022, 09/19/2022, Additional history exists COLORECTAL SCREENING 11/18/2023 11/17/2018, 11/17/2018, 11/17/2018, Additional history exists Colorectal Cancer Screening 11/18/2023 INFLUENZA VACCINE (#1) 2025 , 03/04/2020, 03/16/2019, Additional history exists COVID-19 Vaccine (4 - 2024-2 6 season) 2025 03/25/2021, 08/19/2020, 07/19/2020 OSTEOPOROSIS SCREENING 06/17/2025 06/17/2020 RSV VACCINE (60+ or ) (1 - 1-dose 75+ series) 2029 ZOSTER VACCINE Completed 11/22/2020, 05/15/2020 Procedures Procedure Name Priority Date/Time Associated Diagnosis Comments MAMMO 3D OSMAN SCREEN BILAT W OR WO CAD Routine 09/19/2022 POC OCCULT BLOOD, IMMUNO, QUAL, STOOL Routine 06/17/2020 10:10 AM SHEET COMBINING OPERATOR Screening mammogram, encounter for XR DEXA BONE DENSITY AXIAL 1 OR MORE SITES Routine 06/17/2020 9:48 AM SHEET COMBINING OPERATOR Other specified menopausal and perimenopausal disorders ENDOSCOPY, COLON, SCREENING Routine 11/17/2018 from Last 3 Months or Most Recently Relevant to Health Maintenance Results * MAMMO SCRN BILAT 3D OSMAN W OR WO CAD (09/19/2022) Anatomical Region Laterality Modality Breast Bilateral Mammography us Abstract Provider MAMMO ORDERABLES Edited Result - Final * POC OCCULT BLOOD, IMMUNO, QUAL, STOOL (06/17/2020 10:10 AM SHEET COMBINING OPERATOR) OCCULT BLOOD, IMMUNOASSAY POC Negative Negative [facility] CONTROL OPERATOR FLOW COAT TOWER A ROBYN [address] INTERNAL KIT QC Pass Pass [facility] CONTROL OPERATOR FLOW COAT TOWER A [address] KIT LOT NUMBER POC [id number] [facility] CONTROL OPERATOR FLOW COAT TOWER A ROBYN 6[address]A KIT EXPIRATION DATE POC [id number] [facility] CONTROL OPERATOR FLOW COAT TOWER A [address]YN [address] Stool STOOL SPECIMEN / Unknown 06/17/2020 10:10 AM SHEET COMBINING OPERATOR Kindra Gilliland MD POINT OF CARE TESTING Marielos l Result [facility] CONTROL OPERATOR FLOW COAT TOWER A [address]YN [address] CLIA# [id number] [address] [facility] [address] [place] [address] * XR DEXA BONE DENSITY AXIAL 1 OR MORE SITES (06/17/2020 9:48 AM SHEET COMBINING OPERATOR) Anatomical Region Laterality Modality Computed Radiogr aphy Impressions 06/19/2020 3:42 PM SHEET COMBINING OPERATOR : Normal bone density study. FRAX is negative and there is no history of osteoporotic fracture. Repeat in 2 years. Kindra Gilliland MD DIAGNOSTIC IMAGING ORDERAB LES Final Result * ENDOSCOPY, COLON, SCREENING (11/17/2018) Abstract Provider GI PROCEDURE ORDERABLES Final Result from Last 3 Months or Most Recently Relevant to Health Maintenance Insurance [facility] [address] [address] [id number]
--- OUTSIDE RECORDS SUMMARY | 2025-05-03 10:26 | XMS_ITS | Clinical Summary ---
Author Organization [facility] Address [address] [place] [address] Care Team Providers Care Psychological Assistant Name Role Phone Bebeto Mosquera MD Primary Care Provider Source Comments [facility],non-owned Affiliates and Associated Physician Practices is amultiple site organization consisting of ambulatory clinics and hospital sitesin [place], [place], [place] and [place]. This disclosure is being madepursuant to the Care Everywhere program and may not contain all information available regarding this patient. Last updated 18.[facility] Allergies No known active allergies Medications * Be aware that medications may not be up to date on this document. Alwaysverify current medications with the patient. Brimonidine Tartrate (LUMIFY OP) 1 drop by Ophthalmic route as needed (EACH EYE IN AM FOR REDNESS) Active Povidone (IVIZIA DRY EYES OP) 1 drop by Ophthalmic route as needed (USES SEVERAL TIMES PER DAY FOR DRY EYE) Active betamethasone dipropionate (Diprosone) 0.05 % ointment Apply to affected area 2 times daily as needed 5 Active oxyCODONE, immediate release, (Roxicodone) 10 MG tabletIndications :Status post total knee replacement, unspecified laterality Take 0.5 (one-half) tablet to 1 (one) tablet by mouth every 4 hours as needed for Pain 42 tablet 02/12/2025 12:35 PM CDT 5 Active omeprazole (PriLOSEC) 20 MG capsule Take 1 (one) capsule by mouth once daily for 42 days 42 capsule 02/12/2025 12:35 PM CDT Active celecoxib (CeleBREX) 200 MG capsule Take 1 (one) capsule by mouth 2 times daily for 42 days 84 capsule 5 05/09/20 25 Active Active Problems Problem Noted Date Diagnosed Date Status post total knee replacement, unspecified laterality 02/11/2025 Pre-op evaluation 01/20/2025 Primary osteoarthritis of right knee 08/14/2024 Cervical high risk human pap illomavirus (HPV) DNA test positive 06/21/2023 06/21/2023 Family history of malignant neoplasm of breast 0 06/21/2023 06/21/2023 Menopausal symptoms 06/21/2023 06/21/2023 Primary osteoarthritis of left knee 06/21/2023 Encounters Date Type Department Care Team Description 03/28/2025 Refill [facility] [address] [place] [phone] Neo Clancy MD Refill Request 03/26/2025 Refill [facility] [address] [place] [phone] Chele Sawyer MD Refill Request 03/25/2025 3:05 PM CDT Ancillary Procedure [facility] - Radiology [address] [place] [phone] Chele Sawyer MD Aftercare following joint replacement surgery, unspecified joint 03/25/2025 2:50 PM CDT Office Visit [facility] [address] [place] [phone] Chele Sawyer MD Aftercare following joint replacement surgery, unspecified joint (Primary Dx) 03/04/2025 4:00 PM CDT Office Visit [address] [phone] Chele Sawyer MD Aftercare following joint replacement surgery, unspecified joint (Primary Dx) 02/11/2025 9:32 AM CDT Anesthesia Event [facility] - Perioperative Surgery [id number] [place] [phone] Jelani Nova MD Ford, James D, CHIEF MECHANICAL ENGINEER-LAWN MOWER REPAIRER 02/11/2025 8:54 AM CDT - 02/11/2025 11:12 AM CDT Surgery [facility] - Perioperative Surgery [address] [place] [id number] Chele Sawyer MD ARTHROPLASTY RIGHT TOTAL KNEE 02/11/2025 7:12 AM CDT - 02/12/2025 12:45 PM CDT Hospital Encounter [facility] [address] [place] [phone] Chele Sawyer MD Surgery General Discharge Disposition: Home Health Care Svc 02/11/2025 Travel 02/08/2025 Telephone [facility] [address] [place] [address], [address] [place] [phone] Chele Sawyer MD Question from Last 3 Months Family History Medical History Relation Name Comments Cancer - Skin, Non Melanoma Brother Cancer - Skin, Non Melanoma Father Relation Name Status Comments Brother Father Social History Tobacco Use Types Packs/Day Years Used Date Smoking Tobacco: Never Smokeless Tobacco: Never Tobacco Cessation:Counseling Given: Not Answered Alcohol Use Standard Drinks/Week Comments Not Currently 3 (1 standard drink = 0.6 oz pur e alcohol) WEEKLY AUDIT-C Answer Date Recorded Q1: How often do you have a drink containing alcohol? Monthly or less 06/18/2024 Q2: How many drinks containi ng alcohol do you have on a typical day when you are drinking? Patient does not drink Q3: How often do you have si x or more drinks on one occasion? Never 06/18/2024 PHQ-2 Answer Date Recorded Patient Health Questionnaire-2 Score 0 03/22/2025 Hunger Vital Sign Answer Date Recorded Within the past 12 months, y ou worried that your food would run out before you got the money to buy more. Never true 02/13/20 25 Within the past 12 months, t he food you bought just didn't last and you didn't have money to get more. Never true 02/12/2025 Comments No Sex and Gender Information Value Date Recorded Sex Assigned at Not on file Legal Sex Female 6:15 AM DRAPERY COUNSELOR Gender Identity Not on file Sexual Orientation Not on file Last Filed Vital Signs Vital Sign Reading Time Taken Comments Blood Pressure 103/53 02/12/2025 8:56 AM CDT Pulse 72 02/12/2025 8:56 AM CDT Temperature 37.1 C (98.8 F) 02/12/2025 8:02 AM CDT Respiratory Rate 16 02/12/2025 8:02 AM CDT Oxygen Saturation 100% 02/12/2025 8:56 AM CDT Inhaled Oxygen Concentration - - Weight 64 kg (141 lb) 02/11/2025 7:30 AM CDT Height 157.5 cm (5' 2) 02/11/2025 7:30 AM CDT s tated per pt Body Mass Index 25.79 02/11/2025 7:30 AM CDT Plan of Treatment Health Maintenance Due Date Last Done Comments COLOGUARD (AGES 45-75) - COLON CA SCREENING 1955 CT COLONOGRAPHY - COLON CA SCREENING 1955 FIT - COLON CA SCREENING 1955 FLEX SIG - COLON CA SCREENING 1955 LIPID TESTING 1955 HEPATITIS C SCREENING 04/30/1972 DTAP/TDAP/TD VACCINES (1 - Tdap) 1973 PNEUMOCOCCAL VACCINE 50+ (1 of 1 - PCV) 2004 ZOSTER VACCINE (1 of 2) 2004 MEDICARE AWV CALENDAR YEAR 2024 COVID-19 VACCINE ( - 2024- season) 2025 03/26/2021, 08/19/2020, 07/19/2020 INFLUENZA VACCINE (#1) 2025 , 06/03/2023, 06/03/2022, Additional history exists MAMMOGRAM 01/04/2027 01/04/2025, 0809/2024, 11/20/2023, Additional history exists SCREENING FOR DIABETES 01/21/2028 01/20/2025, 2023 Respiratory Syncytial Virus (RSV) Vaccine Pt: or over 60 yrs (1 - 1-dose 75+ series) 2029 COLON MONITORING 02/09/2034 02/10/2024, 11/17/2018 COLONOSCOPY - COLON CA SCREENING 02/09/2034 02/10/2024, 11/17/2018 Colorectal Cancer Screening 02/09/2034 BONE DENSITY TESTING Completed 06/17/2020 DEPRESSION SCREENING Completed 07/09/2024, 08/05/19 24 HEPATITIS B VACCINE Aged Out No longe r eligible based on patient's age to complete this topic HIB VACCINE Aged Out No longer eligi ble based on patient's age to complete this topic HPV VACCINE Aged Out No longer eligi ble based on patient's age to complete this topic MENINGOCOCCAL (Group B) VACCINE SHARED DECISION-MAKING Aged Out No longer eligible based on patient's age to complete this topic MENINGOCOCCAL GROUPS A/C/Y/W VACCINE Aged Out No longer eligible based on patient's age to complete this topic Goals Goal Patient Goal Type Associated Problems Recent Progress Patient-Stated? Author Autogenera keke Goal Care Plan Autogenerated Problem No Maureen [employer] Implanted Type Area Supervisor Malted Milk Device Identifier Shelf Expiration Date Model / Serial / Lot Cmnt Bone Plc R 40gm Grn Implanted:Qty: 1 on 06/18/2024 by Chele Sawyer MD at [facility] Left: Knee [employer] 06/02/2026 [id number] / / [id number] Cmpnt Ptlr Std 28mm 3 Pg Kn Ser A Implanted:Qty: 1 on 06/18/2024 by Chele Sawyer MD at [facility] Left: Knee [employer] 05/06/2029 [id number] / / [id number] Tray Tib 71mm Kn Cocr I Beam Implanted:Qty: 1 on 06/18/2024 by Chele Sawyer MD at [facility] Left: Knee [employer] 03/20/2034 [id number] / / [id number] Cmpnt Fem Kn Lt Cr Cmnt Prm Vngrd Intlk Implanted:Qty: 1 on 06/18/2024 by Chele Sawyer MD at [facility] Left: Knee [employer] 01/26/2034 [id number] / / [id number] Brng [id number] Vngrd Vivacit-E Kn Ant Stab Implanted:Qty: 1 on 06/18/2024 by Chele Sawyer MD at [facility] Left: Knee [employer] 03/13/2029 [id number] / / [id number] Brng 38l18mu Vngrd Vivacit-E Kn Ant Stab Implanted:Qty: 1 on 02/11/2025 by Chele Sawyer MD at [facility] Right: Knee [employer] 10/28/2029 [id number] / / [id number] Cmnt Bone Plc R 40gm Grn Implanted:Qty: 1 on 02/11/2025 by Chele Sawyer MD at [facility] Right: Knee [employer] 06/02/2027 [id number] / / [id number] Cmpnt Fem Kn Rt Cr Cmnt Prm Vngrd Intlk 65 Mm Implanted:Qty: 1 on 02/11/2025 by Chele Sawyer MD at [facility] Right: Knee [employer] 10/07/2034 [id number] / / [id number] Cmpnt Ptlr Std 28mm 3 Pg Kn Ser A Implanted:Qty: 1 on 02/11/2025 by Chele Sawyer MD at [facility] Right: Knee [employer] 11/13/2029 [id number] / / [id number] Tray Tib 67mm Kn Cocr I Beam Implanted:Qty: 1 on 02/11/2025 by Chele Sawyer MD at [facility] Right: Knee [employer] 09/24/2034 [id number] / / [id number] Procedures Procedure Name Priority Date/Time Associated Diagnosis Comments XR KNEE RIGHT 3VW Routine 03/25/2025 3:1 6 PM CDT Aftercare following joint replacement surgery, unspecified joint NEURAXIAL BLOCK Routine 02/11/2025 10:01 AM CDT VT TOTAL KNEE REPLACEMENT 02/11/2025 9:07 AM CDT Special Needs BIOMET (JEAN MARIE) NOTIFIED-KS COMPREHENSIVE METABOLIC PANEL Routine 01/20/2025 8:49 AM CDT Pre-op evaluation from Last 3 Months or Most Recently Relevant to Health Maintenance Results * XR Knee Right 3Vw (03/25/2025 3:16 PM CDT) Narrative [facility] [place] [address] - 03/25/2025 3:16 PM CDT Please see progress note in Epic for results. Chele Sawyer MD DIAGNOSTIC IMAGING ORDERABLES Final Result [facility] [place] [address] * Neuraxial Block (02/11/2025 10:01 AM CDT) Narrative Celestino Hughes, DELBERTLAWN MOWER REPAIRER - 02/11/2025 10:01 AM CDT Celestino Hughes, DELBERTLAWN MOWER REPAIRER 02/11/2025 10:02 AM Neuraxial Block Note Pre-Procedure: Procedure Name: Neuraxial Block Patient Location: OR Indications: surgical anesthesia Pre-Anesthetic Checklist: Patient identified, IV Checked, Risks and benefits discussed, Surgical consent verified, Monitors and equipment, Site examined, Pre-op evaluation done, Informed consent obtained, Questions answered/anesthesia questions answered and Allergies reviewed Anticoagulation/ Anti-thrombosis status confirmed? Yes Supplemental O2: room air Monitors: BP and continuous pluse ox Patient Condition: sedated, meaningful contact maintained throughout procedure Patient Sedated? Nursing sedation administration Sedation Type: mild Sedation Agents (manual): versed fentanyl mL Procedure: Block Type: Spinal Prep: Betadine Sterile Field: mask, cap/hat, sterile established and sterile gloves Approach: midline Skin was localized? Nursing documentation on [facility] Skin localized with: Lidocaine 1% and 1 mL Spinal Block: Needle Type: spinal needle Needle Gauge: 22 Needle Length: 90 mm Placement Site: L3-4 Number of Attempts: 1 CSF: free flow, aspiration before injection Local anesthetics used? Nursing documentation on the [facility] Spinal Local Anesthetic: Bupivacaine: 0.75% in dextrose 2 mL Degree of difficulty: none Procedure Tolerance: tolerated well performed while the patient was sedated Sensory Level: lower level Motor Blockade: Yes Position post procedure: supine Vital Signs: Vital signs monitored and stable throughout. See anesthesia record for details. Start Time: 02/11/2025 9:32 AM End Time: 02/11/2025 9:40 AM Total Time: 8 Staff: Anesthesia Provider: Celestino Hughes, THEO-LAWN MOWER REPAIRER - performed the procedure us Jelani Nova MD GENERAL ANESTHESIA ORDERABLE S Final Result * (ABNORMAL) COMPREHENSIVE METABOLIC PANEL (01/20/2025 8:49 AM CDT) Glucose 81 70 - 99 mg/dL 01/20/2025 9:22 AM CDT [facility] Sodium 143 136 - 145 mmol/L 01/20/2025 9:22 AM CDT [facility] Potassium 4.3 3.5 - 5.1 mmol/L 01/20/2025 9:22 AM CDT [facility] Chloride 110(H) 98 - 107 mmol/L 01/20/2025 9:22 AM CDT [facility] CO2 27 22 - 29 mmol/L 01/20/2025 9:22 AM CDT [facility] Calcium 9.1 8.4 - 10.4 mg/dL 01/20/2025 9:22 AM CDT [facility] Anion Gap 6 6 - 16 mmol/L 01/20/2025 9:22 AM CDT [facility] BUN 17 7 - 26 mg/dL 01/20/2025 9:22 AM CDT [facility] Creatinine 0.70 0.57 - 1.11 mg/dL 01/20/2025 9:22 AM CDT [facility] Alkaline Phosphatase 65 40 - 150 U/L 01/20/2025 9:22 AM CDT [facility] ALT 14 6 - 57 U/L 01/20/2025 9:22 AM CDT [facility] AST 22 10 - 48 U/L 01/20/2025 9:22 AM CDT [facility] Protein Total 6.5 6.4 - 8.3 gm/dL 01/20/2025 9:22 AM CDT [facility] Albumin 4.0 3.1 - 4.5 gm/dL 01/20/2025 9:22 AM CDT [facility] Bilirubin Total 0.7 0.2 - 1.2 mg/dL 01/20/2025 9:22 AM CDT [facility] eGFR by CKD-EPI >90 >=90 mL/min/1.7 3 m2 01/20/2025 9:22 AM CDT [facility] Comment:Estimated Glomerular Filtration Rate (eGFR) calculated using the CKD-EPI Creatinine Equation (2020), per the National Kidney Foundation and [place] Society [employer] Nephrology recommendations. 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
== END 2025-05-03 09:35 | disposition home or self-care (01) ==
PROVIDERS: PCP Family Medicine; Visit Provider Nurse Practitioner Family
DX: Z13.820 Encounter for screening for osteoporosis (principal); Z78.0 Asymptomatic menopausal state
CPT/HCPCS: 77080